=== PATIENT | female | born 1995 | race Caucasian/White ===

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

== ENCOUNTER 2017-05-04 23:37 | Emergency (ER) | payer OTHER ==
[~2017-05-04] VITALS: Ht 162.5 cm; Wt 86.2 kg
[~2017-05-04 23:37] MED LIST changes: +MACRODANTIN100 M1 PO
[2017-05-05] MEDS ORDERED: KETOROLAC10 MG PO (01:36)
[2017-05-05] MEDS ORDERED: Orphenadrine C100 MG PO (01:36)
== END 2017-05-05 01:41 | disposition home or self-care (01) ==
LOC: ED 23:37
DX: S16.1XXA Strain of muscle, fascia and tendon at neck level, initial encounter (principal); R51 Headache; F17.200 Nicotine dependence, unspecified, uncomplicated; V89.2XXA Person injured in unspecified motor-vehicle accident, traffic, initial encounter; Y93.89 Activity, other specified; Y92.89 Other specified places as the place of occurrence of the external cause; Y99.8 Other external cause status

== ENCOUNTER 2018-01-27 12:16 | Emergency (ER) | payer OTHER ==
[~2018-01-27] VITALS: Ht 162.5 cm; Wt 81.6 kg
[~2018-01-27 12:16] MED LIST changes: +KETOROLAC10 MG PO; +Orphenadrine C100 MG PO
[2018-01-27] MEDS ORDERED: TRAZODONE50 MG PO (12:28)
[2018-01-27] MEDS ORDERED: FLUOXETINE HYDR20 M1 PO (12:28)
[2018-01-27] MEDS ORDERED: HYDROXYZINE PAM25 M1 PO (12:28)
== END 2018-01-27 13:24 | disposition home or self-care (01) ==
LOC: ED 12:16
DX: J02.9 Acute pharyngitis, unspecified (principal); R11.10 Vomiting, unspecified; R68.2 Dry mouth, unspecified; F17.200 Nicotine dependence, unspecified, uncomplicated; Z79.899 Other long term (current) drug therapy

== ENCOUNTER 2018-02-01 19:43 | Inpatient (IN) | payer OTHER ==
[~2018-02-01] VITALS: Ht 162.6 cm; Wt 84.6 kg
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
--- NOTE | ~2018-02-01 | EKG ---
[place], [place] ELECTROCARDIOGRAM REPORT NAME: DARRICK FIELD UNIT #: [id number] ROOM: [facility] DOCTOR: EPIPHANY DRAFT REPORT BIRTHDATE: [birth year] [facility] Test Date: 2018-02-01 Test Time: 20:15:15 Pat Name: DARRICK FIELD Department: Room: [facility] Gender: F [employer] Specialist: MARCY : 1995 Requested By: NADER RAMÍREZ Order Number: [id number] Reading MD: Tree Pang MD Measurements Intervals [place] Rate: 94 P: 42 WY: 155 QRS: 41 QRSD: 90 T: 36 QT: 351 QTc: 440 Interpretive Statements Sinus rhythm ST elev, probable normal early repol pattern Baseline wander in lead(s) V1,V2,V4 Electronically Signed On 02-02-2018 12:57:04 PDT by Tree Pang MD CM:EKGRPT:ELECTROCARDIOGRAM REPORT 14 1257 NADER RAMÍREZ MD EPIPHANY DRAFT REPORT NADER RAMÍREZ MD
[~2018-02-01 19:43] MED LIST changes: +FLUOXETINE HYDR20 M1 PO; +HYDROXYZINE PAM25 M1 PO; +TRAZODONE50 MG PO
[2018-02-01 21:42] LABS: BASO % 0.2 % (0.0-1.0); EOS % 0.1 % (1.0-4.0); HEMATOCRIT 41.7 % (37.0-47.0); HEMOGLOBIN 13.8 g/dl (12.0-16.0); LYMPH # 1.4 10*3/uL (1.3-4.4); LYMPH % 7.9 % (27.0-41.0); MEAN CELL VOLUME 89.7 fl (81.0-99.0); MEAN CORPUSCULAR HGB 29.7 pg (27.0-31.0); MEAN CORPUSCULAR HGB CONC 33.1 g/dl (33.0-37.0); MEAN PLATELET VOLUME 9.2 fl (9.6-12.3); MONO # 0.8 10*3/uL (0.1-1.0); MONO % 4.5 % (3.0-9.0); NEUT # 14.9 10*3/uL (2.3-7.9); PLATELET COUNT AUTOMATED 360 10*3/uL (130-400); RED BLOOD COUNT 4.65 10*6/uL (4.10-5.10); WHITE BLOOD COUNT 17.4 10*3/uL (4.8-10.8)
[2018-02-01 22:05] LABS: ALBUMIN 3.3 gm/dl (3.1-4.5); ALKALINE PHOSPHATASE 95 U/L (45-117); B-hCG (QUALITATIVE) NEGATIVE (NEGATIVE); BUN 11 mg/dl (7-24); CHLORIDE 111 mmol/L (98-107); POTASSIUM 4.3 mmol/L (3.5-5.1); SGOT/AST 68 IU/L (3-35); SGPT/ALT 61 U/L (12-78); SODIUM 140 mmol/L (136-145); TOTAL PROTEIN 6.4 gm/dL (6.4-8.2); TROPONIN I 0.031 ng/ml (<0.045)
[2018-02-01 22:06] LABS: ACETAMINOPHEN (TYLENOL) < 2.0 ug/ml (10-30); ETHYL ALCOHOL < 3.0 mg/dl (<3)
[2018-02-01 22:18] VITALS: BP 110/63
[2018-02-02] VITALS (8 sets, daily range): BP systolic 91–122; BP diastolic 44–88
[2018-02-02 03:28] LABS: BASO % 0.2 % (0.0-1.0); EOS # 0.1 10*3/uL (0.0-0.4); EOS % 0.2 % (1.0-4.0); HEMATOCRIT 37.8 % (37.0-47.0); HEMOGLOBIN 12.5 g/dl (12.0-16.0); LYMPH # 2.5 10*3/uL (1.3-4.4); LYMPH % 12.6 % (27.0-41.0); MEAN CELL VOLUME 90.2 fl (81.0-99.0); MEAN CORPUSCULAR HGB 29.8 pg (27.0-31.0); MEAN CORPUSCULAR HGB CONC 33.1 g/dl (33.0-37.0); MEAN PLATELET VOLUME 8.8 fl (9.6-12.3); MONO # 0.9 10*3/uL (0.1-1.0); MONO % 4.3 % (3.0-9.0); NEUT # 16.5 10*3/uL (2.3-7.9); NEUT % 82.2 % (47.0-73.0); PLATELET COUNT AUTOMATED 305 10*3/uL (130-400); RED BLOOD COUNT 4.19 10*6/uL (4.10-5.10); RED CELL DISTRI WIDTH 15.1 % (0-14.5)
[2018-02-02 03:36] LABS: ACT PARTIAL THROMBO TIME 22.7 SECONDS (20.8-31.5)
[2018-02-02 03:44] LABS: ALBUMIN 2.7 gm/dl (3.1-4.5); ALKALINE PHOSPHATASE 81 U/L (45-117); BUN 9 mg/dl (7-24); CHLORIDE 109 mmol/L (98-107); CHOLESTEROL 141 mg/dL (<200); CREATININE 0.78 mg/dL (0.55-1.02); FREE T4 0.81 ng/dl (0.76-1.46); HDL CHOLESTEROL 51 mg/dl (40-60); LDL CHOLESTEROL 73 mg/dL (9-159); PHOSPHOROUS 3.4 mg/dL (2.5-4.9); POTASSIUM 4.2 mmol/L (3.5-5.1); SGOT/AST 52 IU/L (3-35); SGPT/ALT 49 U/L (12-78); SODIUM 141 mmol/L (136-145); TOTAL PROTEIN 5.6 gm/dL (6.4-8.2); TRIGLYCERIDES 84 mg/dl (<150); VLDL CHOLESTEROL 17 mg/dL (6-40)
[2018-02-02 04:22] LABS: BILIRUBIN NEGATIVE (NEGATIVE); BLOOD NEGATIVE (NEGATIVE); CLARITY SL CLOUDY (CLEAR); COLOR YELLOW (YELLOW); GLUCOSE NEGATIVE (NEGATIVE); KETONE NEGATIVE (NEGATIVE)
[2018-02-02 04:23] LABS: LEUKO ESTERASE NEGATIVE (NEGATIVE); NITRITE NEGATIVE (NEGATIVE); UROBILINOGEN 0.2 E.U./dl (0.2-1.0)
[2018-02-02 04:31] LABS: URINE AMPHETAMINES < 1000 (1000ng/ml); URINE BARBITURATES < 200 (200ng/ml); URINE BENZODIAZEPINES > 200 (200ng/ml); URINE CANNABINOIDS (THC) > 50 (50ng/ml); URINE COCAINE > 300 (300ng/ml); URINE METHADONE < 300 (300ng/ml); URINE OPIATES < 300 (300ng/ml); URINE PHENCYCLIDINE < 25 (25ng/ml)
[2018-02-02 04:32] LABS: EPITHELIAL CELLS 25-30
[2018-02-02 04:33] LABS: BACTERIA TRACE
[2018-02-03] VITALS: BP 134/63
[2018-02-03 03:28] VITALS: BP 105/59
[2018-02-03 08:00] VITALS: BP 121/86
[2018-02-03 08:23] LABS: BASO % 0.4 % (0.0-1.0); EOS # 0.1 10*3/uL (0.0-0.4); EOS % 1.5 % (1.0-4.0); HEMATOCRIT 39.4 % (37.0-47.0); HEMOGLOBIN 13.3 g/dl (12.0-16.0); LYMPH # 1.6 10*3/uL (1.3-4.4); LYMPH % 20.1 % (27.0-41.0); MEAN CELL VOLUME 87.8 fl (81.0-99.0); MEAN CORPUSCULAR HGB 29.6 pg (27.0-31.0); MEAN CORPUSCULAR HGB CONC 33.8 g/dl (33.0-37.0); MONO # 0.5 10*3/uL (0.1-1.0); MONO % 6.7 % (3.0-9.0); NEUT # 5.6 10*3/uL (2.3-7.9); NEUT % 70.9 % (47.0-73.0); PLATELET COUNT AUTOMATED 288 10*3/uL (130-400); RED BLOOD COUNT 4.49 10*6/uL (4.10-5.10); WHITE BLOOD COUNT 7.9 10*3/uL (4.8-10.8)
[2018-02-03 08:41] LABS: BUN 6 mg/dl (7-24); CHLORIDE 105 mmol/L (98-107); SODIUM 137 mmol/L (136-145)
[2018-02-03 12:00] VITALS: BP 121/81
[2018-02-03 16:00] VITALS: BP 127/87
[2018-02-03 20:00] VITALS: BP 120/56
[2018-02-04] VITALS: BP 115/76
[2018-02-04 06:22] LABS: BASO % 0.6 % (0.0-1.0); EOS # 0.1 10*3/uL (0.0-0.4); EOS % 2.1 % (1.0-4.0); HEMOGLOBIN 12.6 g/dl (12.0-16.0); LYMPH # 1.6 10*3/uL (1.3-4.4); LYMPH % 30.5 % (27.0-41.0); MEAN CELL VOLUME 89.2 fl (81.0-99.0); MEAN CORPUSCULAR HGB 29.6 pg (27.0-31.0); MEAN CORPUSCULAR HGB CONC 33.2 g/dl (33.0-37.0); MONO # 0.2 10*3/uL (0.1-1.0); MONO % 4.5 % (3.0-9.0); NEUT # 3.3 10*3/uL (2.3-7.9); NEUT % 61.7 % (47.0-73.0); PLATELET COUNT AUTOMATED 250 10*3/uL (130-400); RED BLOOD COUNT 4.26 10*6/uL (4.10-5.10); RED CELL DISTRI WIDTH 15.1 % (0-14.5); WHITE BLOOD COUNT 5.3 10*3/uL (4.8-10.8)
[2018-02-04 06:32] LABS: BUN 4 mg/dl (7-24); CHLORIDE 108 mmol/L (98-107); CREATININE 0.79 mg/dL (0.55-1.02); POTASSIUM 3.8 mmol/L (3.5-5.1); SODIUM 141 mmol/L (136-145)
[2018-02-04 08:00] VITALS: BP 113/67
[2018-02-04] MEDS ORDERED: AVPAK AZITHROM250 M1 PO (08:15)
== END 2018-02-04 10:13 | disposition home or self-care (01) | DRG 917 ==
LOC: ED 19:43 → EDHOLD 22:54 → ICCU 22:54 → 4E 02-03 17:50 → 5E 02-03 17:54
PROVIDERS: Emergency Medicine Emergency Medical Services; Family Medicine; Internal Medicine
DX: T50.901A Poisoning by unspecified drugs, medicaments and biological substances, accidental (unintentional), initial encounter (principal); A41.9 Sepsis, unspecified organism; J69.0 Pneumonitis due to inhalation of food and vomit; E44.0 Moderate protein-calorie malnutrition; E87.8 Other disorders of electrolyte and fluid balance, not elsewhere classified; E83.51 Hypocalcemia; F13.90 Sedative, hypnotic, or anxiolytic use, unspecified, uncomplicated; F15.90 Other stimulant use, unspecified, uncomplicated; E55.9 Vitamin D deficiency, unspecified; F17.210 Nicotine dependence, cigarettes, uncomplicated; J40 Bronchitis, not specified as acute or chronic; R74.0 Nonspecific elevation of levels of transaminase and lactic acid dehydrogenase [LDH]; F12.10 Cannabis abuse, uncomplicated; F41.1 Generalized anxiety disorder; F32.9 Major depressive disorder, single episode, unspecified; E66.9 Obesity, unspecified; Z71.6 Tobacco abuse counseling; Z87.440 Personal history of urinary (tract) infections; Z87.81 Personal history of (healed) traumatic fracture; Z98.891 History of uterine scar from previous surgery; Z83.3 Family history of diabetes mellitus; Z82.49 Family history of ischemic heart disease and other diseases of the circulatory system; Z82.5 Family history of asthma and other chronic lower respiratory diseases; Z79.899 Other long term (current) drug therapy; Y92.89 Other specified places as the place of occurrence of the external cause; Z68.32 Body mass index [BMI] 32.0-32.9, adult

== ENCOUNTER 2020-09-18 05:16 | Emergency (ER) | payer OTHER ==
[~2020-09-18] VITALS: Ht 160 cm; Wt 99.8 kg
[~2020-09-18 05:16] MED LIST changes: +AVPAK AZITHROM250 M1 PO
== END 2020-09-18 09:00 | disposition home or self-care (01) ==
LOC: ED 05:16
DX: T40.601A Poisoning by unspecified narcotics, accidental (unintentional), initial encounter (principal); R40.20 Unspecified coma; F32.9 Major depressive disorder, single episode, unspecified; F41.1 Generalized anxiety disorder; F17.200 Nicotine dependence, unspecified, uncomplicated; Z79.2 Long term (current) use of antibiotics; Z79.899 Other long term (current) drug therapy; Z98.890 Other specified postprocedural states; Z90.89 Acquired absence of other organs; Y92.89 Other specified places as the place of occurrence of the external cause

== ENCOUNTER 2021-10-18 06:56 | Emergency (ER) | payer OTHER ==
[~2021-10-18] VITALS: Ht 162.5 cm; Wt 108.9 kg
== END 2021-10-18 10:27 | disposition home or self-care (01) ==
LOC: ED 06:56
DX: S82.61XA Displaced fracture of lateral malleolus of right fibula, initial encounter for closed fracture (principal); S92.351A Displaced fracture of fifth metatarsal bone, right foot, initial encounter for closed fracture; F17.200 Nicotine dependence, unspecified, uncomplicated; F12.10 Cannabis abuse, uncomplicated; Z98.890 Other specified postprocedural states; Z79.2 Long term (current) use of antibiotics; V49.88XA Car occupant (driver) (passenger) injured in other specified transport accidents, initial encounter; Y93.89 Activity, other specified; Y92.413 State road as the place of occurrence of the external cause; Y99.9 Unspecified external cause status

== ENCOUNTER → 2021-11-02 | Outpatient (CLI) | payer OTHER | END | disposition home or self-care (01) | LOC: ORTHO 01:15 | PROVIDERS: ATTEND Orthopaedic Surgery | DX: S52.571D Other intraarticular fracture of lower end of right radius, subsequent encounter for closed fracture with routine healing (principal); S82.64XD Nondisplaced fracture of lateral malleolus of right fibula, subsequent encounter for closed fracture with routine healing; X58.XXXD Exposure to other specified factors, subsequent encounter ==

== ENCOUNTER 2021-11-13 21:18 | Emergency (ER) | payer OTHER | END 2021-11-14 02:23 | disposition left against medical advice (07) | LOC: ED 21:18 | DX: S92.901A Unspecified fracture of right foot, initial encounter for closed fracture (principal); Z79.899 Other long term (current) drug therapy; Z90.89 Acquired absence of other organs; Z98.890 Other specified postprocedural states; Z87.891 Personal history of nicotine dependence; X58.XXXA Exposure to other specified factors, initial encounter; Y93.89 Activity, other specified; Y92.89 Other specified places as the place of occurrence of the external cause; Y99.8 Other external cause status ==